=== PATIENT | male | born 1970 | race Caucasian/White ===

== ENCOUNTER 2023-11-16 21:11 | Emergency (ER) | payer MEDICAID ==
[~2023-11-16] VITALS: Ht 167.6 cm; Wt 63.5 kg
[2023-11-16 21:20] VITALS: BP 134/82; PULSE 82; RESP 18; TEMP 98; O2SAT 98
[2023-11-16 23:30] VITALS: BP 134/82; PULSE 82; RESP 18; TEMP 98; O2SAT 98
[2023-11-17 00:47] LABS: APPEARANCE,URINE CLEAR (CLEAR); BILIRUBIN,URINE NEGATIVE (NEGATIVE); BLOOD, URINE NEGATIVE (NEGATIVE); COLOR,URINE YELLOW (YELLOW); LEUKOCYTE ESTERASE ,URINE NEGATIVE (NEGATIVE); NITRITE, URINE NEGATIVE (NEGATIVE); PROTEIN,URINE NEGATIVE (NEGATIVE); UGLUCOSE 2+ (NEGATIVE); UROBILINOGEN,URINE 0.2 EU/dL (0.2 - 1)
[2023-11-17 01:32] LABS: AMPHETAMINE, URINE POSITIVE ng/ml (NEG <=1000); BARBITURATE, URINE NEGATIVE ng/ml (NEG <=200); BENZODIAZEPINE, URINE NEGATIVE ng/mL (NEG <=200); CANNABINOID, URINE NEGATIVE ng/mL (NEG <=50); COCAINE, URINE POSITIVE ng/mL (NEG <=300); OPIATE, URINE NEGATIVE ng/mL (NEG <=2000); PHENCYCLIDINE SCREEN,URINE NEGATIVE ng/mL (NEG <=25)
== END 2023-11-17 01:30 | disposition home or self-care (01) ==
LOC: MED 21:11
DX: Z00.8 Encounter for other general examination (principal)
CPT/HCPCS: 80305; 81003; 87491; 99283